=== PATIENT | male | born 1930 | race Caucasian/White ===

== ENCOUNTER → 2018-08-30 | Outpatient (CLI) | payer MEDICARE ==
[~2018-08-30] MED LIST: ALTACE5 MG PO; CRESTOR5 MG PO; FLOMAX0.4 MG PO; GLIMEPIRIDE4 MG PO; GLIPIZIDE5 MG PO
--- NOTE | 2018-08-30 13:20 | Diagnostic Imaging Report ---
EXAM: CHEST 2 VIEWS, PA and lateral DATE: 08/30/2018 Time stamp on exam: 10:29 AM INDICATION: Cough COMPARISON: None FINDINGS: LINES/TUBES: Prosthetic mitral valve LUNGS: Right upper and lower lobe airspace opacities compatible with pneumonia. Left peripheral pleural-based opacity likely pleural calcification. PLEURA: Small right pleural effusion. HEART AND MEDIASTINUM: Normal size and contour. Calcification within the aorta. BONES AND SOFT TISSUES: Several wedge-shaped thoracic spine vertebral bodies. IMPRESSION: Right upper and lower lobe multifocal pneumonia. Signed by: Dr. Markie Crandall DO on 08/30/2018 1:17 PM
== END ==
LOC: RAD 10:14
PROVIDERS: ATTEND Internal Medicine
DX: R05 Cough (principal)
CPT/HCPCS: 71046

== ENCOUNTER → 2018-09-04 | Outpatient (CLI) | payer MEDICARE ==
--- NOTE | 2018-09-04 14:34 | Diagnostic Imaging Report ---
EXAMINATION: PA and lateral views of the chest. COMPARISON: 08/30/2018 CLINICAL HISTORY: Pneumonia DISCUSSION: Interval worsening multifocal consolidations involving the right mid and lower lung zones and the left midlung zone. Superimposed calcified pleural plaques. Stable cardiomediastinal contour with valvular prosthesis. Multilevel degenerative disc changes of the thoracic spine without acute osseous abnormality. IMPRESSION: Worsening multifocal pneumonia involving the right mid and lower lungs and the left midlung. Follow-up chest radiograph in 6-8 weeks is suggested to document resolution after appropriate treatment. Signed by: Dr. Lincoln Kathleen M.D. on 09/04/2018 2:30 PM
== END ==
LOC: RAD 13:48
PROVIDERS: ATTEND Internal Medicine
DX: R05 Cough (principal); J18.9 Pneumonia, unspecified organism
CPT/HCPCS: 71046

== ENCOUNTER → 2019-02-07 | Outpatient (CLI) | payer MEDICARE ==
--- NOTE | 2019-02-07 13:38 | Diagnostic Imaging Report ---
EXAMINATION: CHEST 2 VIEWS INDICATION: Cough COMPARISON: Chest radiograph of 09/04/2018 FINDINGS: LINES/TUBES:None LUNGS:The lungs are mildly hyperinflated. There is perihilar fullness and indistinctness of the pulmonary vasculature. More focal 3.6 cm somewhat round opacity in the left midlung zone was present on multiple prior chest radiographs. PLEURA:Likely trace bilateral pleural effusions. MEDIASTINUM:Cardiomediastinal silhouette is stably enlarged. Atherosclerotic calcifications of the thoracic aorta. BONES/SOFT TISSUES:No acute osseous injury. ABDOMEN:No free air under the diaphragm. IMPRESSION: Cardiomegaly and pulmonary edema. More focal 3.6 centimeters somewhat rounded opacity in the left midlung zone was present on multiple prior chest radiographs. RECOMMENDATIONS: Chest CT on a nonurgent basis to exclude focal mass of the left lung. Signed by: Jadyn Pham MD on 02/07/2019 1:35 PM
== END ==
LOC: RAD 11:53
PROVIDERS: ATTEND Internal Medicine
DX: R05 Cough (principal)
CPT/HCPCS: 71046